=== PATIENT | female | born 1955 | race African-American/Black ===

== ENCOUNTER → 2019-05-03 | Day surgery (SDC) | payer BC ==
--- NOTE | 2019-05-07 17:05 | PATH ---
Surgical Pathology Report Patient Name: MIGUEL VELA [facility]. Rec. #: [id number] /Age/Gender: 1955 (Age: 63) / F Account: [id number] Location: [facility] Taken: 05/03/2019 Received: 05/03/2019 Reported: 05/07/2019 Physicians: Radha Stein M.D. Specimen(s) Received A: RIGHT BREAST SPECIMEN - WITH CALCIFICATIONS B: RIGHT BREAST SPECIMEN - WITHOUT CALCIFICATIONS Clinical History Nonpalpable lesion Mammographic findings: Microcalcification, suspicious Final Diagnosis A. RIGHT BREAST SPECIMEN WITH CALCIFICATIONS, STEREOTACTIC BIOPSY: BREAST TISSUE WITH FOCAL DILATED DUCTS, STROMAL FIBROSIS, AND MICROCALCIFICATIONS. B. RIGHT BREAST SPECIMEN WITHOUT CALCIFICATIONS, STEREOTACTIC BIOPSY: FIRST TISSUE WITH USUAL DUCTAL HYPERPLASIA (UDH), APOCRINE METAPLASIA, STROMAL FIBROSIS, AND MICROCALCIFICATIONS. Comment: Immunohistochemical stain E-cadherin performed and interpreted at [facility] shows membranous expression in the areas of usual ductal hyperplasia. Positive and negative controls (internal if applicable) show appropriate results. Electronically Signed Sonja White M.D. Gross Description A. Received in formalin labeled "right breast with calcifications," is a 2.0 x 1.7 x 0.3 cm aggregate of multiple roberts-yellow, irregular to cylindrical portions of fibroadipose tissue. The formalin is filtered and the specimen is entirely submitted in one cassette. B. Received in formalin labeled "right breast without calcifications," is a 1.8 x 1.8 x 0.3 cm aggregate of multiple roberts-yellow, irregular to cylindrical portions of fibroadipose tissue. The formalin is filtered and the specimen is entirely submitted in one cassette. Time to formalin fixation: 5 minutes Total formalin fixation time: Approximately 6 hours. /05/03/2019 saudi05/03/2019
== END | disposition home or self-care (01) ==
LOC: FMAMMOTONE 10:28
PROVIDERS: ATTEND Surgery Surgical Oncology
PROC: 0HBT3ZX Excision of Right Breast, Percutaneous Approach, Diagnostic (ICD-10-PCS; principal; 2019-05-03)
DX: N60.11 Diffuse cystic mastopathy of right breast (principal); N60.31 Fibrosclerosis of right breast; N60.81 Other benign mammary dysplasias of right breast; N64.89 Other specified disorders of breast; R92.1 Mammographic calcification found on diagnostic imaging of breast
CPT/HCPCS: 19081; 88305-TC; 88341-TC